=== PATIENT | male | born 1945 | race Caucasian/White ===

== ENCOUNTER 2019-10-23 15:40 | Emergency (ER) | payer MEDICARE, OTHER ==
--- NOTE | 2019-10-23 15:54 | EDM.PDOC ---
ED HPI GENERAL MEDICAL PROBLEM - General Stated Complaint: NOSE BLEED Time Seen by Provider: 10/23/19 15:40 Source of Information: Reports: Patient History Limitations: Reports: No Limitations - History of Present Illness INITIAL COMMENTS - FREE TEXT/NARRATIVE: Patient presented to the Ed because of bleeding over the left nares. He tried to apply pressure but couldn't stop it. He is taking an unknown blood thinner. - Related Data Allergies Allergy/AdvReac Type Severity Reaction Status Date / Time No Known Allergies Allergy Verified 10/24/19 07:28 Home Meds: Home Meds . [Unable to Verify Home Med List] 10/24/19 [History] ED ROS ENT - Review of Systems Review Of Systems: See Below Constitutional: Reports: No Symptoms HEENT: Reports: Nosebleed Respiratory: Reports: No Symptoms Cardiovascular: Reports: No Symptoms Endocrine: Reports: No Symptoms GI/Abdominal: Reports: No Symptoms : Reports: No Symptoms Musculoskeletal: Reports: No Symptoms Skin: Reports: No Symptoms Neurological: Reports: No Symptoms Psychiatric: Reports: No Symptoms ED EXAM, ENT - Physical Exam Exam: See Below Exam Limited By: No Limitations General Appearance: Alert, No Apparent Distress Ears: Normal External Exam, Normal Canal, Hearing Grossly Normal, Normal TMs Nose: Normal Inspection, Normal Mucousa, Other (active bleeding left nares) Mouth/Throat: Normal Inspection, Normal Gums, Normal Lips, Normal Oropharynx Extremities: Normal Inspection, Normal Range of Motion Neurological: Alert, Oriented, CN II-XII Intact, Normal Cognition Psychiatric: Normal Affect, Normal Mood Skin: Warm, Dry, Intact, Normal Color, No Rash Course - Vital Signs Text/Narrative:: a rhino jamal was applied in the left nares and bleeding stopped. Last Recorded V/S: Last Vital Signs Temp Pulse 67 10/23/19 15:40 Resp 16 10/23/19 15:40 BP 129/73 10/23/19 15:40 Pulse Ox 100 10/23/19 15:40 Departure - Departure Time of Disposition: 16:30 Disposition: Home, Self-Care 01 Condition: Good Clinical Impression: Nosebleed - Discharge Information Instructions: Nosebleed, [id number] Referrals: Justice Vicente MD [Primary Care Provider] - Forms: ED Department Discharge Additional Instructions: please read discharge instructions on nose bleed remove the nasal pack after 24 hours as instructed do not take your blood thinner for 3 days follow up as needed Sepsis Event Note - Focused Exam Date Exam was Performed: 10/25/19 Time Exam was Performed: 16:30
== END 2019-10-23 16:11 | disposition home or self-care (01) ==
LOC: FB.ED 15:40
DX: R04.0 Epistaxis (principal)
CPT/HCPCS: 30903; 99283-25